=== PATIENT | female | born 1965 | race Caucasian/White ===

== ENCOUNTER 2016-12-26 11:51 | Emergency (ER) | payer SELFPAY ==
[~2016-12-26] VITALS: Ht 170.2 cm; Wt 98.0 kg
[~2016-12-26 11:51] MED LIST: ALBUTEROL2.5 MG/3 M IN; BACTRIM DS1 TAB PO; CLARITHROMYC500 M2 PO; DIFLUCAN150 MG PO; EQ OMEPRAZOLE20 MG PO; FIORICE1 PO; FUROSEMIDE20 MG PO; LEVEMIR SC; LISINOPRIL20 M1 PO; LORTAB 5 OR; METFORMIN HCL500 M1 PO; METFORMIN1000 MG OR; METHOCARBAM500 MG PO; METROGEL1 % EX; METRONIDAZOL0.752 VA; METRONIDAZOL500 MG PO; NAPROXEN500 MG PO; NEXIUM40 M1 OR; NEXIUM40 M1 PO; NOVOLIN 70/30 SC; POTASSIUM CHLO10 MEQ PO; PREVPAC OR; PRILOSEC OTC20 MG OR; ROBITUSSIN DM OR; ULTRAM50 MG OR; WELLBUTRIN100 M1 OR; ZOFRAN ODT4 MG OR; ZOFRAN ODT4 MG PO; ZPAK OR; ZPAK PO
[2016-12-26] MEDS ORDERED: EC-NAPROSYN500 MG PO (12:17)
[2016-12-26 12:30] VITALS: BP 125/86
== END 2016-12-26 12:47 | disposition home or self-care (01) | DRG 558 ==
LOC: ED 11:51
DX: M72.0 Palmar fascial fibromatosis [Dupuytren] (principal); I10 Essential (primary) hypertension; E11.9 Type 2 diabetes mellitus without complications; E78.00 Pure hypercholesterolemia, unspecified; K21.9 Gastro-esophageal reflux disease without esophagitis; J44.9 Chronic obstructive pulmonary disease, unspecified; Z79.4 Long term (current) use of insulin; F17.210 Nicotine dependence, cigarettes, uncomplicated

== ENCOUNTER 2017-07-03 14:53 | Emergency (ER) | payer SELFPAY ==
[~2017-07-03] VITALS: Ht 170.2 cm; Wt 96.0 kg
[~2017-07-03 14:53] MED LIST changes: +EC-NAPROSYN500 MG PO
[2017-07-03 16:00] LABS: HEMATOCRIT 41.8 % (37.0-47.0); HEMOGLOBIN 14.7 g/dl (12.0-16.0); IMMATURE GRANULOCYTES 0.5 % (0.0-1.0); MEAN CELL VOLUME 91.5 fL CALC (80.0-100.0); MEAN CORPUSCULAR HGB 32.2 pG CALC (26.0-32.0); MEAN CORPUSCULAR HGB CONC 35.2 g/L CALC (32.0-36.0); NEUT# 3.95 thou/uL (2.00-7.15); RED BLOOD COUNT 4.57 mill/uL (4.20-5.60); RED CELL DISTRI WIDTH 12.8 % (11.5-15.5)
[2017-07-03 16:18] LABS: ANION GAP 17 (6-22 (CALC)); BUN 23 mg/dL (7-17); BUN/CREATININE RATIO 29 (12-20 (CALC)); CALCIUM 9.6 mg/dL (8.4-10.2); CARBON DIOXIDE 22 mmol/l (22-30); CHLORIDE 101 mmol/l (95-108); CREATININE 0.8 mg/dL (0.5-1.0); GFR > 60 ML/MIN (>=60 (CALC)); GFR FOR AFR.AMER. > 60 ML/MIN (>=60 (CALC)); GLUCOSE 345 mg/dL (65-105); POTASSIUM 4.5 mmol/l (3.5-5.1); SODIUM 137 mmol/l (137-146)
[2017-07-03] MEDS ORDERED: BACTRIM DS1 TAB PO (18:30)
[2017-07-03 18:44] VITALS: BP 135/77
== END 2017-07-03 18:49 | disposition home or self-care (01) | DRG 603 ==
LOC: ED 14:53
PROVIDERS: Family Medicine
DX: L03.116 Cellulitis of left lower limb (principal); E11.9 Type 2 diabetes mellitus without complications; E78.00 Pure hypercholesterolemia, unspecified; I10 Essential (primary) hypertension; K21.9 Gastro-esophageal reflux disease without esophagitis; J44.9 Chronic obstructive pulmonary disease, unspecified; F17.210 Nicotine dependence, cigarettes, uncomplicated
CPT/HCPCS: Q9967

== ENCOUNTER 2017-07-05 17:57 | Emergency (ER) | payer SELFPAY ==
[~2017-07-05] VITALS: Ht 170.2 cm; Wt 100.0 kg
[2017-07-05] MEDS ORDERED: PERCOCET 5/325M1 TAB PO (19:02)
[2017-07-05] MEDS ORDERED: CIPROFLOXACN500 MG PO (19:04)
[2017-07-05 19:20] VITALS: BP 120/70
== END 2017-07-05 19:20 | disposition home or self-care (01) | DRG 603 ==
LOC: ED 17:57
DX: L02.416 Cutaneous abscess of left lower limb (principal); E11.9 Type 2 diabetes mellitus without complications; I10 Essential (primary) hypertension; J44.9 Chronic obstructive pulmonary disease, unspecified; K21.9 Gastro-esophageal reflux disease without esophagitis; F17.210 Nicotine dependence, cigarettes, uncomplicated

== ENCOUNTER 2018-11-02 10:21 | Emergency (ER) | payer SELFPAY ==
[~2018-11-02] VITALS: Ht 170.2 cm; Wt 96.0 kg
[~2018-11-02 10:21] MED LIST changes: -TORADOL PO
[2018-11-02] MEDS ORDERED: TORADOL PO (11:15)
[2018-11-02 11:24] VITALS: BP 128/67
== END 2018-11-02 11:30 | disposition home or self-care (01) | DRG 605 ==
LOC: ED 10:21
DX: S20.211A Contusion of right front wall of thorax, initial encounter (principal); S00.03XA Contusion of scalp, initial encounter; R07.81 Pleurodynia; S00.81XA Abrasion of other part of head, initial encounter; W01.0XXA Fall on same level from slipping, tripping and stumbling without subsequent striking against object, initial encounter; Y93.01 Activity, walking, marching and hiking; Y92.003 Bedroom of unspecified non-institutional (private) residence as the place of occurrence of the external cause

== ENCOUNTER → 2018-11-02 | Outpatient (REF) ==
[~2018-11-02] MED LIST changes: +CIPROFLOXACN500 MG PO; +PERCOCET 5/325M1 TAB PO; +TORADOL PO
== END | disposition home or self-care (01) | DRG 951 ==
LOC: PAGE 16:32
PROVIDERS: ATTEND Nurse Practitioner Family
DX: Z02.9 Encounter for administrative examinations, unspecified (principal)

== ENCOUNTER 2019-03-04 19:00 | Emergency (ER) | payer SELFPAY ==
[~2019-03-04] VITALS: Ht 170.2 cm; Wt 100.0 kg
[~2019-03-04 19:00] MED LIST changes: +TORADOL PO
[2019-03-04] MEDS ORDERED: METFORMIN HCL1000 MG PO (19:17)
[2019-03-04] MEDS ORDERED: GLIPIZIDE5 M2 PO (19:17)
[2019-03-04] MEDS ORDERED: DITROPAN5 MG/TA1 PO (19:18)
[2019-03-04 20:40] VITALS: BP 141/74
== END 2019-03-04 20:40 | disposition home or self-care (01) | DRG 563 ==
LOC: ED 19:00
DX: S46.912A Strain of unspecified muscle, fascia and tendon at shoulder and upper arm level, left arm, initial encounter (principal); S80.212A Abrasion, left knee, initial encounter; R07.89 Other chest pain; E11.9 Type 2 diabetes mellitus without complications; F17.210 Nicotine dependence, cigarettes, uncomplicated; V49.40XA Driver injured in collision with unspecified motor vehicles in traffic accident, initial encounter; Z79.84 Long term (current) use of oral hypoglycemic drugs

== ENCOUNTER 2019-06-30 22:10 | Emergency (ER) | payer SELFPAY ==
[~2019-06-30] VITALS: Ht 170.2 cm; Wt 92.6 kg
[~2019-06-30 22:10] MED LIST changes: +DITROPAN5 MG/TA1 PO; +GLIPIZIDE5 M2 PO; +METFORMIN HCL1000 MG PO
[2019-06-30] MEDS ORDERED: BACTRIM DS1 TAB PO (22:35)
[2019-06-30 23:49] VITALS: BP 128/79
== END 2019-06-30 23:30 | disposition home or self-care (01) | DRG 761 ==
LOC: ED 22:10
DX: N89.8 Other specified noninflammatory disorders of vagina (principal)

== ENCOUNTER 2019-10-18 | Observation (INO) | payer SELFPAY ==
[2019-10-18] MEDS ORDERED: OXYCODONE5 M1 PO (15:19)
[2019-10-18 16:01] LABS: HEMATOCRIT 36.9 % (37.0-47.0); IMMATURE GRANULOCYTES 0.5 % (0.0-5.0); MEAN CELL VOLUME 89.1 fL CALC (80.0-100.0); MEAN CORPUSCULAR HGB 29.7 pG CALC (26.0-32.0); MEAN CORPUSCULAR HGB CONC 33.3 g/L CALC (32.0-36.0); NEUT# 9.72 thou/uL (2.00-7.15); RED BLOOD COUNT 4.14 mill/uL (4.20-5.60); RED CELL DISTRI WIDTH 13.7 % (11.5-15.5)
[2019-10-18 16:06] LABS: HEMOGLOBIN 12.3 g/dl (12.0-16.0)
[2019-10-18 16:20] LABS: ANION GAP 20 (6-22 (CALC)); BUN 17 mg/dL (7-17); BUN/CREATININE RATIO 22 (12-20 (CALC)); CARBON DIOXIDE 22 mmol/l (22-30); CHLORIDE 89 mmol/l (95-108); CREATININE 0.8 mg/dL (0.5-1.0); GFR > 60 ML/MIN (>=60 (CALC)); GFR FOR AFR.AMER. > 60 ML/MIN (>=60 (CALC))
[2019-10-18 16:29] LABS: SODIUM 126 mmol/l (137-146)
[2019-10-18 19:31] LABS: URINE BILIRUBIN - DIPSTICK NEGATIVE (NEGATIVE); URINE BLOOD DIPSTICK LARGE (NEGATIVE); URINE COLOR YELLOW; URINE GLUCOSE - DIPSTICK >=1000 mg/dL (NEGATIVE); URINE KETONE NEGATIVE (NEGATIVE); URINE LEUK ESTERASE TRACE (NEGATIVE); URINE NITRITE - DIPSTICK NEGATIVE (Negative); URINE PH 6.5 (4.5-8.0); URINE PROTEIN - DIPSTICK NEGATIVE (NEG-TRACE); URINE SPECIFIC GRAVITY 1.015; URINE UROBILINOGEN - DIPSTICK 0.2 E.U./dL (0.2)
[2019-10-18 19:43] LABS: URINE SQUAMOUS EPITHELIAL CELL FEW EPI/hpf (0-FEW)
== END 2019-10-18 19:50 | disposition left against medical advice (07) | DRG 639 ==
PROVIDERS: Family Medicine; ADMIT Internal Medicine
DX: E11.65 Type 2 diabetes mellitus with hyperglycemia (principal); T38.3X6A Underdosing of insulin and oral hypoglycemic [antidiabetic] drugs, initial encounter; Z91.128 Patient's intentional underdosing of medication regimen for other reason; Z79.84 Long term (current) use of oral hypoglycemic drugs; F17.210 Nicotine dependence, cigarettes, uncomplicated

== ENCOUNTER 2020-03-19 12:50 | Emergency (ER) | payer BC, MEDICAID ==
[~2020-03-19] VITALS: Ht 170.2 cm; Wt 90.0 kg
[~2020-03-19 12:50] MED LIST changes: +OXYCODONE5 M1 PO
[2020-03-19] MEDS ORDERED: GLIPIZIDE ER10 M1 PO (13:42)
[2020-03-19] MEDS ORDERED: TRAMADOL HCL50 MG PO (13:43)
[2020-03-19] MEDS ORDERED: SERTRALINE HCL50 MG PO (13:44)
[2020-03-19 15:10] VITALS: BP 141/64
== END 2020-03-19 15:10 | disposition home or self-care (01) | DRG 563 ==
LOC: ED 12:50
DX: S92.352A Displaced fracture of fifth metatarsal bone, left foot, initial encounter for closed fracture (principal); E11.9 Type 2 diabetes mellitus without complications; F17.210 Nicotine dependence, cigarettes, uncomplicated; W01.0XXA Fall on same level from slipping, tripping and stumbling without subsequent striking against object, initial encounter; Y92.009 Unspecified place in unspecified non-institutional (private) residence as the place of occurrence of the external cause; Z79.84 Long term (current) use of oral hypoglycemic drugs

== ENCOUNTER 2021-01-24 00:39 | Emergency (ER) | payer BC, MEDICAID ==
[~2021-01-24] VITALS: Ht 170.2 cm; Wt 101.0 kg
[~2021-01-24 00:39] MED LIST changes: +GLIPIZIDE ER10 M1 PO; +SERTRALINE HCL50 MG PO; +TRAMADOL HCL50 MG PO
[2021-01-24 01:28] LABS: HEMATOCRIT 34.1 % (37.0-47.0); HEMOGLOBIN 10.9 g/dl (12.0-16.0); IMMATURE GRANULOCYTES 0.4 % (0.0-5.0); MEAN CORPUSCULAR HGB 30.5 pG CALC (26.0-32.0); NEUT# 6.23 thou/uL (2.00-7.15); RED BLOOD COUNT 3.57 mill/uL (4.20-5.60); RED CELL DISTRI WIDTH 14.8 % (11.5-15.5)
[2021-01-24 01:32] LABS: MEAN CELL VOLUME 95.5 fL CALC (80.0-100.0)
[2021-01-24 01:45] LABS: ALKALINE PHOSPHATASE 126 u/l (38-126); BILIRUBIN, TOTAL 0.3 mg/dL (0.0-1.4); BUN 20 mg/dL (7-17); BUN/CREATININE RATIO 25 (12-20 (CALC)); CREATININE 0.8 mg/dL (0.5-1.0); GFR > 60 ML/MIN (>=60 (CALC)); GFR FOR AFR.AMER. > 60 ML/MIN (>=60 (CALC)); SGOT/AST 18 u/l (14-36)
[2021-01-24 01:47] LABS: ALBUMIN 3.4 g/dL (3.2-5.0); ANION GAP 11 (6-22 (CALC)); CARBON DIOXIDE 27 mmol/l (22-30); CHLORIDE 102 mmol/l (95-108); SODIUM 136 mmol/l (137-146); TOTAL PROTEIN 6.2 g/dL (6.3-8.2)
[2021-01-24 01:48] LABS: DIGOXIN < 0.4 ng/mL (0.8-2.0)
[2021-01-24 01:55] LABS: MYOGLOBIN 26 ng/mL (0 - 62)
[2021-01-24 02:00] LABS: INTERNATIONAL NORMALIZED RATIO 1.1 RATIO (0.7-1.3); PROTHROMBIN TIME 11.5 SECONDS (9.0-12.5)
[2021-01-24] MEDS ORDERED: OXYCODONE5 M1 PO (02:33)
[2021-01-24 02:34] VITALS: BP 137/63
== END 2021-01-24 02:18 | disposition short-term general hospital (02) | DRG 282 ==
LOC: ED 00:39
PROVIDERS: Emergency Medicine
DX: I21.3 ST elevation (STEMI) myocardial infarction of unspecified site (principal); E11.9 Type 2 diabetes mellitus without complications; Z79.84 Long term (current) use of oral hypoglycemic drugs; Z85.41 Personal history of malignant neoplasm of cervix uteri; F17.200 Nicotine dependence, unspecified, uncomplicated

== ENCOUNTER 2021-02-26 16:18 | Inpatient (IN) | payer BC, MEDICAID ==
[2021-02-26] VITALS (13 sets, daily range): BP systolic 75–120; BP diastolic 41–63
[~2021-02-26] VITALS: Ht 170.2 cm; Wt 103.0 kg
--- NOTE | 2021-02-26 16:18 | NUR ---
PT TO ROOM VIA EMS
[2021-02-26 17:01] LABS: HEMATOCRIT 27.4 % (37.0-47.0); HEMOGLOBIN 8.6 g/dl (12.0-16.0); IMMATURE GRANULOCYTES 0.2 % (0.0-5.0); MEAN CELL VOLUME 94.8 fL CALC (80.0-100.0); MEAN CORPUSCULAR HGB 29.8 pG CALC (26.0-32.0); MEAN CORPUSCULAR HGB CONC 31.4 g/dL CAL (32.0-36.0); NEUT# 11.15 thou/uL (2.00-7.15); RED BLOOD COUNT 2.89 mill/uL (4.20-5.60); RED CELL DISTRI WIDTH 17.5 % (11.5-15.5)
[2021-02-26 17:06] LABS: ALBUMIN 3.3 g/dL (3.2-5.0); TOTAL PROTEIN 6.4 g/dL (6.3-8.2)
[2021-02-26 17:07] LABS: BILIRUBIN, TOTAL 0.1 mg/dL (0.0-1.4); CREATININE 4.9 mg/dL (0.5-1.0)
--- NOTE | 2021-02-26 17:23 | NUR ---
DR. PETERS REMAINS BEDSIDE WITH PATIENT
--- NOTE | 2021-02-26 17:24 | NUR ---
16 F HUBBARD CATH PLACED AT THIS TIME CLEAR STAW COLORED URINE OUT
[2021-02-26] MEDS ORDERED: GABAPENTIN300 M2 PO (17:42)
[2021-02-26] MEDS ORDERED: XTAMPZA ER13.5 MG PO (17:43)
[2021-02-26] MEDS ORDERED: CARVEDILOL3.125 MG PO (17:43)
[2021-02-26] MEDS ORDERED: ROSUVASTATIN CA40 MG PO (17:45)
[2021-02-26] MEDS ORDERED: LIPITOR20 M1 PO (17:45)
[2021-02-26] MEDS ORDERED: CLOPIDOGREL75 MG PO (17:46)
[2021-02-26] MEDS ORDERED: HYDROCHLOROTH12.5 M1 PO (17:47)
[2021-02-26] MEDS ORDERED: ASPIRIN 81 LOW81 MG PO (17:49)
[2021-02-26] MEDS ORDERED: ONDANSETRON ODT8 MG PO (17:49)
[2021-02-26] MEDS ORDERED: BACTRIM DS1 TAB PO (17:50)
--- NOTE | 2021-02-26 18:20 | NUR ---
LEVOPHED TITRATE UP AT THIS TIME PER PROTOCOL TO 9 mcg
[2021-02-26 18:47] LABS: URINE BLOOD DIPSTICK NEGATIVE (NEGATIVE); URINE COLOR YELLOW; URINE GLUCOSE - DIPSTICK NEGATIVE (NEGATIVE); URINE KETONE TRACE mg/dL (NEGATIVE); URINE LEUK ESTERASE TRACE (NEGATIVE); URINE PROTEIN - DIPSTICK NEGATIVE (NEG-TRACE); URINE SPECIFIC GRAVITY >=1.030; URINE UROBILINOGEN - DIPSTICK 0.2 E.U./dL (0.2)
[2021-02-26 18:59] LABS: URINE BILIRUBIN - DIPSTICK NEGATIVE (NEGATIVE); URINE NITRITE - DIPSTICK NEGATIVE (Negative)
--- NOTE | 2021-02-26 19:01 | NUR ---
LEVO INCREASED TO 10mcg
--- NOTE | 2021-02-26 19:02 | NUR ---
PATIENT RETURNED FROM CT
--- NOTE | 2021-02-26 19:12 | NUR ---
REPORT TO RUFFLER NURSE AARON TOTH
--- NOTE | 2021-02-26 19:43 | NUR ---
REPORT CALLED TO ICU ROOM5
--- NOTE | 2021-02-26 20:15 | NUR ---
OK TO USE CENTRAL LINE PER DR. MEANS. FLUIDS AND LEVOPHED MOVED TO CENTRAL LINE.
--- NOTE | 2021-02-26 20:20 | NUR ---
PATIENT TRANSPORTED TO ICU ON MONITOR ACCOMPANIED BY THIS RN. PATIENT STABLE. AWAKE AND ALERT. NO DISTRESS NOTED.
--- NOTE | 2021-02-26 20:25 | NUR ---
PATIENT ARRIVES VIA STRETCHER ON SENIOR GAME DESIGNER, LEVOPHED DRIP INFUSING AT 10 MCG/MIN AND NS BACKIP IV FLUIDS AT 125 ML/HR ACCOMAPNIED BY AARON TOTH. IS AWAKE, ORIENTED X4, ON 2 L/MIN NC, O2 SAT GREATER THAN 95%, NO SOB NOTED. ANSWERS QUESTIONS APPROPRIATELY, FOLLOWS COMMANDS. NURSE ASSESSMENT PERFORMED. RIJ TRIPLE LUMEN INTACT, RAC IV INTACT. BP 109/50 MMHG, HR 70'S SR. COMPLAINS OF R-GROIN PAIN/R-LEG, RATES 10/10/STABBING, NOTIFIED I WILL PROVIDE PAIN MED. REPORTS SHE SMOKE 1/2 PCK OF CIGARETTED PER DAY. IS WAITING TO BE SEEN BY CANCER SPECIALIST IN [place] [facility]. LIVES AT HOME WITH HER DAUGHTER, FEELS SAFE. IS TRASNPORTED. HAD A RECENT FALL, STATES, "I FELL ON MY BUTT." DOES NOT USE AN MOBILITY AIDE. DOES NOT HAVE TEETH AND DOES NOT HAVE DENTURES. REPORTS SHE FEELS HER RIGHT LEG IS NUMB FROM THE PAIN. DID NOTE [employer]ST[employer] TO BILAT EYES, 2MM/BRISK. REPORTS SHE WAS RECENTLY AT [facility]/HAS HISTORY OF STENT AND WAS AT [facility] IN [place] FOR R-LEG CELLULITIS. REPORTS SHE HAS NOT HAD BM IN 4 DAYS, NORMALLY HAS ONE EVERYDAY AND CAN BE "RUNNY SOMETIMES." HAS HAD COVID VACCINE/MODERNA/UNKNOWN DATE, PNA VACCINE THIS YEAR TOO. POC DISCUSSED, PATIENT UNDERSTANDS AND AGREES. CALL LIGHT WITHIN REACH. NEEDS MINIMAL ASSIST WITH REPOSITIONING.
--- NOTE | 2021-02-26 21:15 | NUR ---
CALLED AND SPOKE TO ALDAIR NOVAK REGARDING CLARIFICATION FOR MEDICATION ORDERS SENT AND RECOMMENDATIONS BY PHARMACY, NEW ORDERS PLACED IN CHART.
--- NOTE | 2021-02-26 21:55 | NUR ---
PAIN MEDICATION PROVIDED, PATIENT ABLE TO SWALLOW APPROPRIATELY, NS INFUSING AT 100 ML/HR, LEVOPHED DRIP UNCHANGED WITH IV BACK UP FLUIDS INFUSING AT 20 ML/HR. AZACTAM INFUSING NOW.
--- NOTE | 2021-02-26 22:15 | NUR ---
R-GROIN HAS OPEN SORES WELL NEAR VAGIANL AREA, AREAS WERE CLEANSED WITH SALINE/PATTED DRY AND ABD PADS PLACED. PATIENT HAD GAUZE PRIOR AND HAD SEROUS DRAINAGE THAT WAS DRY. PROVIDED SANDWICH AND APPLE JUICE/CRACKERS.
--- NOTE | 2021-02-26 22:30 | NUR ---
FLAGYL INFUSING NOW. PATIENT ATE MINIMAL AND DRANK APPLE JUICE. NO COMPLAINTS/AYS ON HER RIGHT SIDE WITH PILLOW ON BACK FOR SUPPORT. CALL LIGHT WITHIN REACH.
[2021-02-27] VITALS (42 sets, daily range): BP systolic 78–144; BP diastolic 34–84
--- NOTE | 2021-02-27 00:05 | NUR ---
LEVOPHED DRIP TITRATED PER PROTOCOL, WILL CONTINUE TO MONITOR.
--- NOTE | 2021-02-27 00:28 | NUR ---
PATIENT RESTS ON HER R-SIDE, WITH EYES CLOSED. NO ACUTE DISTRESS SHOWN. CALL LIGHT WITHIN REACH.
--- NOTE | 2021-02-27 02:00 | NUR ---
PATIENT ASSISTED WITH TURNING TO L-SIDE PER REQUEST. AFEBRILE, NO OTHER NEEDS OR COMPLINTS AT THIS TIME. CALLLIGHT WITHIN REACH.
--- NOTE | 2021-02-27 03:43 | NUR ---
TYLENOL GIVEN FOR C/O PAIN. ASSISTED WITH TURNING TO R-SIDE. NO OTHER NEEDS AT THIS TIME. CALL LIGHT WITHIN REACH.
[2021-02-27 04:54] LABS: HEMATOCRIT 28.9 % (37.0-47.0); HEMOGLOBIN 9.3 g/dl (12.0-16.0); MEAN CELL VOLUME 94.1 fL CALC (80.0-100.0); MEAN CORPUSCULAR HGB 30.3 pG CALC (26.0-32.0); MEAN CORPUSCULAR HGB CONC 32.2 g/dL CAL (32.0-36.0); RED BLOOD COUNT 3.07 mill/uL (4.20-5.60); RED CELL DISTRI WIDTH 17.1 % (11.5-15.5)
[2021-02-27 05:07] LABS: CREATININE 4.1 mg/dL (0.5-1.0); MAGNESIUM 1.6 mg/dL (1.6-2.3); POTASSIUM 4.9 mmol/l (3.5-5.1)
--- NOTE | 2021-02-27 07:40 | NUR ---
PATIENT RECIEVED FROM NIGHT NURSE MALOU TOTH.
--- NOTE | 2021-02-27 08:00 | NUR ---
patient a/o x3, able to make needs known to staff. reported pain 5/10, prn danilo was given around 0500 this morning, patient stated it helped but the pain states at 5 throughout the days. perrla. 3mm. speech is clear. clear/diminished throughout. hypoactive bowel sounds. does have nodules/sores in groin area. clear yellow urine. edema in RLE 2+, LLE trace. bilat pedal pulses needed a doppler. other pulses strong. safety measures in place. call light in reach. will continue to monitor.
--- NOTE | 2021-02-27 09:20 | NUR ---
PATIENT SPOKE TO DAUGHTER ON THE PHONE, DAUGHTER STATES SHE WILL BRING HER HOME CANCER MEDICATION AROUND 12PM, SINCE WE DO NOT HAVE IN HERE IN STOCK.
--- NOTE | 2021-02-27 09:57 | NUR ---
S: LEXUS FLORES is a 55 F who presents with Sepsis. She has a history of NIDDM, Cervical Cancer and Cellulitis. All medications in patient's chart were reviewed. O: VS: BP 110/48mmHg, P 76bpm, RR 18bpm,T98F W 100kg, HT 67inches, Scr= 4.1mg/dL ,CrCl=24.4 <ml/min> A: Blood culture is pending. P: Patient is on Aztreonam 1g IV Q8H and Flagyl 500mg IV Q8H. Vancomycin ordered for pharmacy to dose. Start Vancomycin 1g IV Q36H. Vancomycin trough is drawn before the 4th dose on 03/03/21 at 0430. Vancomycin goal trough is between 15-20 mcg/ml. Pharmacy will follow and or advise on antibiotics use as needed.
--- NOTE | 2021-02-27 10:00 | NUR ---
PATIENT IS RESTING IN BED
--- NOTE | 2021-02-27 12:00 | NUR ---
PATIENT IS SITTING UP IN BED EATING LUNCH
--- NOTE | 2021-02-27 14:00 | NUR ---
PATIENT HAS A VISITOR, DANNIE, SHE WAS ABLE TO BRING IN HER MEDICATIONS THAT WE REQUESTED.
--- NOTE | 2021-02-27 16:00 | NUR ---
PATIENT IS RESTING IN BED
--- NOTE | 2021-02-27 18:01 | NUR ---
PATIENT IS SITTING UP IN BED EATING HER DINNER
--- NOTE | 2021-02-27 19:45 | NUR ---
awake. no acute distress. o2 cont per nc. classroom monitor shows sinus rhythm hr 84. rij tlc in place. levo infusing @ 11mcg/min, ns infusing @ 100cchr. po fluids taken well. harris cath in place. urine clear yellow. rt groin remains red, dsg in place. turns self with much encouragement from this expert medical writer. fall precautions cont.
--- NOTE | 2021-02-27 22:00 | NUR ---
eyes closed. no distress. traffic monitor specialist shows sinus rhythm hr 82.
[2021-02-28] VITALS (24 sets, daily range): BP systolic 100–198; BP diastolic 41–114
--- NOTE | 2021-02-28 00:01 | NUR ---
eyes closed. no distress. harris draining large amt urine.
--- NOTE | 2021-02-28 02:00 | NUR ---
resting quietly. resps even & unlabored. no apparent distress.
--- NOTE | 2021-02-28 04:50 | NUR ---
blood drawn & sent to lab.
[2021-02-28 05:41] LABS: HEMATOCRIT 29.4 % (37.0-47.0); HEMOGLOBIN 9.2 g/dl (12.0-16.0); MEAN CELL VOLUME 95.5 fL CALC (80.0-100.0); MEAN CORPUSCULAR HGB 29.9 pG CALC (26.0-32.0); MEAN CORPUSCULAR HGB CONC 31.3 g/dL CAL (32.0-36.0); RED BLOOD COUNT 3.08 mill/uL (4.20-5.60); RED CELL DISTRI WIDTH 16.9 % (11.5-15.5)
[2021-02-28 05:55] LABS: POTASSIUM 5.1 mmol/l (3.5-5.1)
[2021-02-28 06:04] LABS: CREATININE 2.3 mg/dL (0.5-1.0)
--- NOTE | 2021-02-28 07:40 | NUR ---
PT RESING COMFORTABLY IN BED. NAD. VSS. MANAGER EMERGENCY TO MONITOR.
--- NOTE | 2021-02-28 08:00 | NUR ---
PATIENT ASSESSED, A/O X4, ABLE TO MAKES NEEDS KNOWN. PAIN 5/10 IN GROIN AREA WERE OPEN AREAS ARE. PERRLA. 3MM BILAT. CLEAR/DIMINISHED LUNGS. ACTIVE BOWL SOUNDS. SOFT/DISTENDED ABDOMEN. EDEMA BLE. RLE 2+ LLE 1+. ABLE TO MOVE HER RIGHT LEG BETTER THIS MORNING. SAFETY MEASURES IN PLACE. CALL LIGHT IN REACH. WILL CONTINUE TO MONITOR.
--- NOTE | 2021-02-28 10:00 | NUR ---
PATIENT REFUSED BREAKFAST. MORNING MEDS WERE GIVEN. BED BATH WAS GIVEN. NEW SHEETS PLACED ON BED. PATIENT STATED THAT SHE IS "DOING BETTER AFTER THE BATH" WOUND WAS DRIED AND CLEAN/DRY DRESSING WAS PLACED. SAFETY MEASURES IN PLACE. CALL LIGHT IN REACH. WILL CONTINUE TO MONITOR.
--- NOTE | 2021-02-28 12:00 | NUR ---
PATIENT IS SITTING UP IN BED, WATCHING TV, EATING LUNCH. ZOFRAN WAS GIVEN FOR HER NAUSEA REQUESTED.
--- NOTE | 2021-02-28 12:46 | NUR ---
PATIENT'S DAUGHTER CHRISTINA CALLED, GAVE CODE, REQUESTED AN UPDATE AND WAS GIVEN AN UPDATE. HER QUESTIONS WERE ADDRESSED.
--- NOTE | 2021-02-28 14:00 | NUR ---
PATIENTR IS WITH BROTHER IN THE ROOM, HE CAME TO VISIT HER
--- NOTE | 2021-02-28 16:00 | NUR ---
PATIENT IS RESTING IN BED
--- NOTE | 2021-02-28 18:00 | NUR ---
PATIENT IS EATING DINNER.
--- NOTE | 2021-02-28 19:00 | NUR ---
eyes closed. no distress.
--- NOTE | 2021-02-28 20:20 | NUR ---
awake. nad. o2 cont per nc. threat monitoring analyst shows sinus rhythm. rij tlc in place. levo infusing @ 4mcg/min, ns infusing @ 100cchr. po fluids taken poor. harris cath in place. urine clear yellow. dsg in place to rt groin. turned & repositioned. pt requires much encouragement to assist with care. fall precautions cont.
--- NOTE | 2021-02-28 22:00 | NUR ---
eyes closed. no distress. nurse monitoring shows sinus rhythm hr 80.
[2021-03-01] VITALS (24 sets, daily range): BP systolic 80–123; BP diastolic 40–74
--- NOTE | 2021-03-01 00:01 | NUR ---
eyes closed. no distress. ivf infusing well.
--- NOTE | 2021-03-01 02:00 | NUR ---
resting quietly. resps even & unlabored. no apparent distress. compliance monitor shows sinus rhythm hr 78.
--- NOTE | 2021-03-01 04:00 | NUR ---
eyes closed. no distress. liquefaction supervisor shows sinus rhythm hr 76.
--- NOTE | 2021-03-01 05:30 | NUR ---
medicated for pain as requested.
--- NOTE | 2021-03-01 07:07 | NUR ---
PATIENT RECIEVED FROM DEBBIE NURSE GEENA.
--- NOTE | 2021-03-01 08:00 | NUR ---
PATIENT IS A/O X3, ABLE TO MAKE NEEDS KNOWN. STATED THAT HER PAIN CONTINUES TO BE AT A 5/10. NO SOB, REMOVED OFF OXYGEN. NOW ON ROOM AIR SATS 95-96%. PERRLA 3MM BILAT. LUNGS CLEAR/DIMINSHED. ABDOMEN SOFT, DISTENDED, ACTIVE BOWEL SOUNDS. MILK OF MAG GIVEN. EDEMA ON RLE 2+. PEDAL PULSES WEAK. WOUND/SORES STILL OPEN, DRY DRESSING STILL IN PLACE. LITTLE YELLOW DRAINAGE PRESENT ON DRESSING. SAFETY MEASURES IN PLACE. CALL LIGHT IN REACH. WILL CONTINUE TO MONITOR.
--- NOTE | 2021-03-01 09:44 | NUR ---
SPOKE TO PATIENT'S BROTHER BRENT ON THE PHONE. HE PROVIDED THE CODE, GAVE AN UPDATE OF HIS SISTER PER HIS REQUEST. STATED THAT HE WILL BE COMING UP AROUND 1PM DURING VISITING HOURS TO VISIT HER.
--- NOTE | 2021-03-01 10:00 | NUR ---
PATIENT IS SITTING ON A BEDPAN AT THIS TIME
[2021-03-01 11:56] LABS: CREATININE 1.4 mg/dL (0.5-1.0); HEMOGLOBIN 8.3 g/dl (12.0-16.0); IMMATURE GRANULOCYTES 0.9 % (0.0-5.0); MEAN CELL VOLUME 97.5 fL CALC (80.0-100.0); MEAN CORPUSCULAR HGB CONC 30.7 g/dL CAL (32.0-36.0); NEUT# 8.89 thou/uL (2.00-7.15); RED BLOOD COUNT 2.77 mill/uL (4.20-5.60); RED CELL DISTRI WIDTH 17.1 % (11.5-15.5)
[2021-03-01 11:58] LABS: POTASSIUM 5.2 mmol/l (3.5-5.1)
--- NOTE | 2021-03-01 12:00 | NUR ---
SITTING ON THE BED CASTILLO WAITING TO HAVE A BOWEL MOVEMENT.
--- NOTE | 2021-03-01 14:38 | NUR ---
PATIENT'S BROTHER CAME TO VISIT EARLIER, PATIENT STATED THAT IT WILL BE OK TO GIVE THEM UPDATES ON HER SITUATION. UPDATE WAS GIVEN.
--- NOTE | 2021-03-01 16:50 | NUR ---
PATIENT'S DAUGHTER ALEK, GAVE ME THE CODE, UPDATE WAS GIVEN PER REQUEST.
--- NOTE | 2021-03-01 18:00 | NUR ---
PATIENT IS SITTING UP IN BED EATING HER DINNER PLATE.
--- NOTE | 2021-03-01 20:00 | NUR ---
awakens easily. nad. radiation monitor shows sinus rhythm hr 78. rij tlc in place. ns infusing @ 100cchr. poor po intake. harris cath in place. urine cloudy yellow. rt groin remains red. assisted to turn. fall precautions cont. requires MUCH encouragement to assist with care.
--- NOTE | 2021-03-01 22:00 | NUR ---
eyes closed. no distress. geothermal operations engineer shows sinus rhythm hr 80
--- NOTE | 2021-03-02 00:15 | NUR ---
had extra large burgandy loose stool. medicated for pain as requested.
--- NOTE | 2021-03-02 02:00 | NUR ---
eyes closed. resps even & unlabored. no distress. satellite project site monitor shows sinus rhythm pvcs hr 78
--- NOTE | 2021-03-02 04:00 | NUR ---
eyes closed. no distress. threat monitoring analyst shows sinus rhythm pbs hr 78.
--- NOTE | 2021-03-02 05:30 | NUR ---
blood drawn & sent to lab.
[2021-03-02 05:56] LABS: HEMATOCRIT 26.5 % (37.0-47.0); HEMOGLOBIN 8.1 g/dl (12.0-16.0); IMMATURE GRANULOCYTES 1.1 % (0.0-5.0); MEAN CELL VOLUME 97.8 fL CALC (80.0-100.0); MEAN CORPUSCULAR HGB 29.9 pG CALC (26.0-32.0); MEAN CORPUSCULAR HGB CONC 30.6 g/dL CAL (32.0-36.0); NEUT# 7.89 thou/uL (2.00-7.15); RED BLOOD COUNT 2.71 mill/uL (4.20-5.60); RED CELL DISTRI WIDTH 16.9 % (11.5-15.5)
[2021-03-02 06:15] LABS: CREATININE 1.3 mg/dL (0.5-1.0)
[2021-03-02 06:29] LABS: POTASSIUM 5.3 mmol/l (3.5-5.1)
[2021-03-02 08:00] VITALS: BP 148/66
--- NOTE | 2021-03-02 09:22 | NUR ---
PT SEEN ALERT AND ORIENTED X 3. LUNGS CLEAR. PT ASSISTED TO BEDPAN. PT APPEARS UNMOTIVATED TO PARTICIPATE IN HER OWN CARE.
--- NOTE | 2021-03-02 13:47 | NUR ---
Dr Coleman present at bedside
--- NOTE | 2021-03-02 14:27 | NUR ---
PT VISITED BY DAUGHTER CHRISTINA THIS AFTERNOON. TRANSFER TO [facility] ENCOURAGED HER TO BE TRANSFERRED TO WHERE HER ONCOLOGIST IS LOCATED. PT SEEN BY DR NINO, WHO DENIED THAT HE COULD HELP. PT SEEN BY [facility] MARY [facility], WHO STATES CONTINUE WITH DRESSING CHANGES BEFORE. PT AWARE OF PENDING TRANSFER TO [facility], AWAITING THEIR ACCEPTANCE AND ROOM NUMBER.
--- NOTE | 2021-03-02 15:10 | NUR ---
TOTAL #42 XTAMPZA 13.5MG CAPS RETURNED TO PT IN SECURITY BAG. #30 IN 1 BOTTLE, #10 IN SECOND BOTTLE, #2 UNLOADED FROM ICU PYXIS. COUNT VERIFIED/WITNESSED BY Jolie SANTOYO PHARMD AND Dalila LOMAS RN.
--- NOTE | 2021-03-02 15:42 | NUR ---
PT AT REST IN THE BED, WAITS FOR ACCEPTANCE IN [place]. PT DOES NOT APPEAR TO BE IN DISTRESS. DAUGHTER VISITED EARLIER.
[2021-03-02 16:00] VITALS: BP 140/62
--- NOTE | 2021-03-02 17:24 | NUR ---
received call from [facility]; ETA 30 minutes
--- NOTE | 2021-03-02 18:00 | NUR ---
PT LEAVES FOR [facility] AT THIS TIME. REPORT HAS BEEN CALLED TO ANGEL TOTH. PT TO ROOM [id number]. PT LEAVES IN STABLE BUT SERIOUS CONDITION.
== END 2021-03-02 18:00 | disposition short-term general hospital (02) | DRG 871 ==
LOC: ED 16:18 → ED-I 17:39 → ED 19:06 → ICU 19:07
PROVIDERS: Emergency Medicine; Internal Medicine; Nurse Practitioner; ADMIT Internal Medicine; ATTEND Internal Medicine
PROC: 05HM33Z Insertion of Infusion Device into Right Internal Jugular Vein, Percutaneous Approach (ICD-10-PCS; principal; 2021-02-26)
PROC: 0T9B70Z Drainage of Bladder with Drainage Device, Via Natural or Artificial Opening (ICD-10-PCS; 2021-03-01)
DX: A41.9 Sepsis, unspecified organism (principal); R65.21 Severe sepsis with septic shock; N17.9 Acute kidney failure, unspecified; L03.314 Cellulitis of groin; C79.9 Secondary malignant neoplasm of unspecified site; C85.90 Non-Hodgkin lymphoma, unspecified, unspecified site; L02.214 Cutaneous abscess of groin; T81.31XA Disruption of external operation (surgical) wound, not elsewhere classified, initial encounter; N76.2 Acute vulvitis; C51.0 Malignant neoplasm of labium majus; I95.9 Hypotension, unspecified; I10 Essential (primary) hypertension; E11.9 Type 2 diabetes mellitus without complications; I25.10 Atherosclerotic heart disease of native coronary artery without angina pectoris; H55.00 Unspecified nystagmus; K64.9 Unspecified hemorrhoids; F17.200 Nicotine dependence, unspecified, uncomplicated; Y84.8 Other medical procedures as the cause of abnormal reaction of the patient, or of later complication, without mention of misadventure at the time of the procedure; Z95.5 Presence of coronary angioplasty implant and graft; Z88.0 Allergy status to penicillin; Z20.822 Contact with and (suspected) exposure to COVID-19
CPT/HCPCS: J1650